=== PATIENT | male | born 1990 | race African-American/Black ===

== ENCOUNTER 2017-03-01 07:30 | Inpatient (IN) | payer OTHER ==
[~2017-03-01] VITALS: Ht 160 cm; Wt 65.8 kg
[2017-03-01 08:24] LABS: microscopic required? NO
[2017-03-01 08:35] LABS: BASOPHIL % 0 % (0-2); PLATELET COUNT 274 x10^3mcL (130-400); RED CELL DISTRIBUTION WIDTH 14.2 % (11.5-14.5)
[2017-03-01 08:45] LABS: CALCIUM 8.3 mg/dL (8.5-10.1); CARBON DIOXIDE 25.4 mmol/L (21-32); CHLORIDE SERUM 100 mmol/L (98-107); GFR1 > 60 mL/min; GLUCOSE SERUM 255 mg/dL (74-106); POTASSIUM SERUM 3.5 mmol/L (3.5-5.1); SODIUM SERUM 134 mmol/L (136-145)
[2017-03-01 08:49] LABS: ALKALINE PHOSPHATASE 78 U/L (46-116); ALT/SGPT 14 U/L (16-63); AST/SGOT 11 U/L (15-37); BILIRUBIN TOTAL 0.1 mg/dL (0.20-1.00); MAGNESIUM 1.7 mg/dL (1.8-2.4); TOTAL PROTEIN, SERUM 6.3 g/dL (6.4-8.2)
[2017-03-01 08:51] LABS: urine erythrocyte NEGATIVE (NEGATIVE)
[2017-03-01 08:58] LABS: ALBUMIN 3.1 g/dL (3.4-5.0)
[2017-03-01] MEDS ORDERED: HUMI SC (09:23)
[2017-03-01] MEDS ORDERED: ZOCOR20 MG PO (09:23)
[2017-03-01] MEDS ORDERED: VENTOLIN H0.09 MG/A1 INH (09:24)
[2017-03-01 11:05] LABS: T3 TOTAL 0.69 ng/mL
[2017-03-01 11:20] LABS: FREE T4 0.81 ng/dL (0.76-1.46)
[2017-03-01 11:31] LABS: FREE THYROXINE INDEX 1.5 ug/dL (1.4-4.5); T4(THYROXINE) 4.3 ug/dL (4.7-13.3)
[2017-03-01 11:37] LABS: ALKALINE PHOSPHATASE 73 U/L (46-116); ALT/SGPT 12 U/L (16-63); AMYLASE 42 U/L (25-115); AST/SGOT 16 U/L (15-37); BILIRUBIN TOTAL 0.15 mg/dL (0.20-1.00); CALCIUM 8.4 mg/dL (8.5-10.1); CARBON DIOXIDE 20.7 mmol/L (21-32); CHLORIDE SERUM 104 mmol/L (98-107); CHOLESTEROL 156 mg/dL (<200); GFR1 > 60 mL/min; GLUCOSE SERUM 246 mg/dL (74-106); LIPASE 56 IU/L (73-393); POTASSIUM SERUM 3.7 mmol/L (3.5-5.1); SODIUM SERUM 139 mmol/L (136-145); TOTAL PROTEIN, SERUM 6.3 g/dL (6.4-8.2); TRIGLYCERIDES 59 mg/dL (<150)
[2017-03-01 11:42] LABS: ALBUMIN 3.1 g/dL (3.4-5.0); CHOLESTEROL/HDL RATIO 1.8; HDL CHOLESTEROL 88 mg/dL (40-60)
[2017-03-01 11:57] VITALS: BP 124/84
[2017-03-01 12:57] VITALS: BP 124/84
[2017-03-01 13:13] LABS: BASOPHIL % 0.3 % (0-2); PLATELET COUNT 280 x10^3mcL (130-400)
[2017-03-01 17:14] VITALS: BP 118/81
[2017-03-01 19:26] LABS: AMPHETAMINE QUAL UR NONE DETECTED (NEG <=1000)
[2017-03-01 21:31] VITALS: BP 110/59
[2017-03-02 05:31] LABS: RAPID PLASMA REAGIN Non Reactive (Non Reactive)
[2017-03-02 05:32] VITALS: BP 101/64
[2017-03-02 06:32] LABS: CALCIUM 8.1 mg/dL (8.5-10.1); CARBON DIOXIDE 25.6 mmol/L (21-32); CHLORIDE SERUM 105 mmol/L (98-107); CREATININE SERUM 0.9 mg/dL (0.7-1.3); GFR1 > 60 mL/min; GLUCOSE SERUM 201 mg/dL (74-106); MAGNESIUM 1.8 mg/dL (1.8-2.4); PHOSPHOROUS 4.4 mg/dL (2.5-4.9); POTASSIUM SERUM 4.1 mmol/L (3.5-5.1); SODIUM SERUM 140 mmol/L (136-145)
[2017-03-02 06:44] LABS: BASOPHIL % 0.4 % (0-2); PLATELET COUNT 277 x10^3mcL (130-400); RED CELL DISTRIBUTION WIDTH 14.2 % (11.5-14.5)
[2017-03-02 08:45] VITALS: BP 100/60
[2017-03-02 13:54] VITALS: BP 108/68
[2017-03-02 16:26] VITALS: BP 108/68
[2017-03-02 17:27] VITALS: BP 122/77
[2017-03-02 17:37] VITALS: Ht 160 cm; Wt 65.8 kg
[2017-03-02 20:58] VITALS: BP 119/68
[2017-03-03 05:32] VITALS: BP 110/56
[2017-03-03 07:43] LABS: BASOPHIL % 0.3 % (0-2); PLATELET COUNT 289 x10^3mcL (130-400)
[2017-03-03 07:44] LABS: CALCIUM 8.9 mg/dL (8.5-10.1); CARBON DIOXIDE 29.3 mmol/L (21-32); CHLORIDE SERUM 104 mmol/L (98-107); CREATININE SERUM 0.9 mg/dL (0.7-1.3); GFR1 > 60 mL/min; GLUCOSE SERUM 158 mg/dL (74-106); MAGNESIUM 1.9 mg/dL (1.8-2.4); PHOSPHOROUS 4.9 mg/dL (2.5-4.9); POTASSIUM SERUM 4.3 mmol/L (3.5-5.1); SODIUM SERUM 143 mmol/L (136-145)
[2017-03-03 08:54] VITALS: BP 116/67
[2017-03-03 18:21] VITALS: BP 119/75
[2017-03-03 20:47] VITALS: BP 119/72
[2017-03-04 06:12] VITALS: BP 118/62
[2017-03-04 07:39] LABS: CARBON DIOXIDE 25.9 mmol/L (21-32); CHLORIDE SERUM 100 mmol/L (98-107); CREATININE SERUM 1.2 mg/dL (0.7-1.3); GFR1 > 60 mL/min; GLUCOSE SERUM 230 mg/dL (74-106); MAGNESIUM 1.9 mg/dL (1.8-2.4); PHOSPHOROUS 4.1 mg/dL (2.5-4.9); SODIUM SERUM 138 mmol/L (136-145)
[2017-03-04 07:58] LABS: BASOPHIL % 0.6 % (0-2); PLATELET COUNT 314 x10^3mcL (130-400)
[2017-03-04 08:00] LABS: RED CELL DISTRIBUTION WIDTH 14.7 % (11.5-14.5)
[2017-03-04 09:33] VITALS: BP 106/64
[2017-03-04 18:00] VITALS: BP 135/90
[2017-03-04 21:19] VITALS: BP 133/49
[2017-03-04 21:22] VITALS: BP 127/78
[2017-03-05 05:48] VITALS: BP 113/64
[2017-03-05 06:13] LABS: BASOPHIL % 0.5 % (0-2); PLATELET COUNT 203 x10^3mcL (130-400); RED CELL DISTRIBUTION WIDTH 14.4 % (11.5-14.5)
[2017-03-05 06:17] LABS: CALCIUM 9.2 mg/dL (8.5-10.1); CARBON DIOXIDE 30.3 mmol/L (21-32); CHLORIDE SERUM 99 mmol/L (98-107); GFR1 > 60 mL/min; GLUCOSE SERUM 318 mg/dL (74-106); POTASSIUM SERUM 5.1 mmol/L (3.5-5.1); SODIUM SERUM 135 mmol/L (136-145)
[2017-03-05 09:08] VITALS: BP 124/77
[2017-03-05 10:32] VITALS: BP 124/77
[2017-03-05] MEDS ORDERED: NOR10T PO (11:17)
[2017-03-05] MEDS ORDERED: XANAX2 MG PO (11:18)
[2017-03-05] MEDS ORDERED: CELEXA20 MG PO (11:18)
[2017-03-05] MEDS ORDERED: BACTRIM DS1 TAB PO (11:59)
[2017-03-05 13:47] VITALS: BP 130/64
[2017-03-05] MEDS ORDERED: LIPI20 PO (14:21)
[2017-03-05] MEDS ORDERED: ZES5 PO (14:21)
[2017-03-05] MEDS ORDERED: LAC PO (14:21)
[2017-03-05] MEDS ORDERED: NEU300 PO (14:22)
[2017-03-05] MEDS ORDERED: HIBICLENS118 ML TOP (14:22)
[2017-03-05] MEDS ORDERED: BACO TOP (14:22)
[2017-03-05] MEDS ORDERED: ZOVIRAX400 MG PO (14:22)
== END 2017-03-05 19:30 | disposition home or self-care (01) | DRG 383 ==
LOC: ED 07:30 → MU 10:04 → DU 10:04 → MU 03-02 14:17
PROVIDERS: Emergency Medicine; ADMIT Family Medicine
PROC: 0H97XZZ Drainage of Abdomen Skin, External Approach (ICD-10-PCS; principal; 2017-03-01)
DX: L02.211 Cutaneous abscess of abdominal wall (principal); N17.0 Acute kidney failure with tubular necrosis; E44.0 Moderate protein-calorie malnutrition; J90 Pleural effusion, not elsewhere classified; D68.69 Other thrombophilia; E10.42 Type 1 diabetes mellitus with diabetic polyneuropathy; E10.59 Type 1 diabetes mellitus with other circulatory complications; B95.62 Methicillin resistant Staphylococcus aureus infection as the cause of diseases classified elsewhere; A63.0 Anogenital (venereal) warts; A60.01 Herpesviral infection of penis; D64.9 Anemia, unspecified; E78.5 Hyperlipidemia, unspecified; Z68.25 Body mass index [BMI] 25.0-25.9, adult; Z79.4 Long term (current) use of insulin
CPT/HCPCS: 82947; 82962; 83880; 84439; 87491; 87591; 90715; B4164; J0690; J1170; J1200; J1815; J2001; J2060; J2270; J2405; J3370; J3490; J3535; J7030; J7613; Q0092; Q9967